=== PATIENT | male | born 1975 | race Caucasian/White ===

== ENCOUNTER → 2019-07-17 | Outpatient (CLI) | payer SELFPAY | PROVIDERS: Family Provider Family Medicine; PCP Family Medicine; Visit Provider Family Medicine | DX: N45.1 Epididymitis (principal) | CPT/HCPCS: 76870 ==

== ENCOUNTER → 2019-08-02 07:49 | Outpatient (BNVA) | payer MEDICARE, MEDICAID, SELFPAY | PROVIDERS: Family Provider Family Medicine; PCP Family Medicine; Referring Provider Family Medicine; Visit Provider Urology | DX: N50.819 Testicular pain, unspecified (principal); N99.89 Other postprocedural complications and disorders of genitourinary system; N45.1 Epididymitis; R10.31 Right lower quadrant pain | CPT/HCPCS: 81001 ==

== ENCOUNTER → 2019-08-14 07:51 | Outpatient (BNVA) | payer MEDICARE, MEDICAID, SELFPAY | PROVIDERS: Family Provider Family Medicine; PCP Family Medicine; Visit Provider Urology | DX: R10.31 Right lower quadrant pain (principal) | CPT/HCPCS: 81001 ==

== ENCOUNTER → 2019-08-24 12:34 | Outpatient (BNVA) | payer MEDICARE, MEDICAID, SELFPAY | PROVIDERS: Family Provider Family Medicine; PCP Family Medicine; Visit Provider Psychiatry & Neurology Psychiatry | DX: F63.81 Intermittent explosive disorder (principal); F41.1 Generalized anxiety disorder; F12.20 Cannabis dependence, uncomplicated; F15.21 Other stimulant dependence, in remission; F17.210 Nicotine dependence, cigarettes, uncomplicated | CPT/HCPCS: 99213 ==

== ENCOUNTER 2020-01-18 12:35 | Outpatient (CLI) | payer MEDICARE, MEDICAID, SELFPAY ==
--- NOTE | 2020-01-18 12:37 | US_ITS ---
WS: [id number] SCROTAL ULTRASOUND EXAMINATION CLINICAL INFORMATION: EPIDIDYMITIS COMPARISON: July 17, 2019 FINDINGS: TESTES Bilateral hydroceles with skin thickening worse in the right. Right scrotal skin thickening measures 5.5 mm. Hydrocele with more debris on the right. No evidence of epididymitis or orchitis. Normal in size and echotexture, without focal lesion. Color Doppler: Normal color Doppler flow pattern. Right testes size: 4.2 cm x 3.6 cm x 2.3 cm. Left testes size: 4.0 cm x 2.7 cm x 2.9 cm. EPIDIDYMIDES Normal in size and echotexture, without focal lesion. Color Doppler: Normal color Doppler flow pattern. Right epididymis size: 0.6 cm Left epididymitis size: 0.7 cm HYDROCELE Small bilateral VARICOCELE Bilateral OTHER FINDINGS None. US/US scrotum [id number] IMPRESSION: 1. Small bilateral hydroceles and bilateral varicoceles. Right hydrocele is la rger with more debris compared to left. 2. No evidence of orchitis or epididymitis.
== END 2020-01-18 12:36 | disposition home or self-care (01) ==
LOC: RAD 12:35
PROVIDERS: PCP Registered Nurse; Visit Provider Registered Nurse
DX: N45.1 Epididymitis (principal); N43.3 Hydrocele, unspecified
CPT/HCPCS: 76870

== ENCOUNTER → 2020-03-11 13:54 | Outpatient (BNVA) | payer MEDICARE, MEDICAID, SELFPAY | PROVIDERS: PCP Registered Nurse; Referring Provider Registered Nurse; Visit Provider Podiatrist Foot & Ankle Surgery | DX: M79.671 Pain in right foot (principal) | CPT/HCPCS: 73630 ==

== ENCOUNTER 2020-04-05 08:57 | Outpatient (CLI) | payer MEDICARE, MEDICAID, SELFPAY ==
--- NOTE | 2020-04-05 09:06 | XR_ITS ---
WS: [id number] THORACIC SPINE TECHNIQUE: 3 views of the thoracic spine CLINICAL INFORMATION: dorsalgia,cervicalgia COMPARISON: None. FINDINGS: Mild thoracic curve. Vertebral body heights and disc space heights are well preserved. No acute thora cic spine findings. XR/XR thoracic spine 3V* [id number] IMPRESSION: Mild thoracic curve. No acute thoracic spine findings.
--- NOTE | 2020-04-05 09:06 | XR_ITS ---
WS: [id number] CERVICAL SPINE TECHNIQUE: 3 views of the cervical spine CLINICAL INFORMATION: Dorsalgia, Cervicalgia COMPARISON: None. FINDINGS: Straightening of the normal cervical lordosis. Normal C1-C2 articulation. Normal prevertebral soft ti ssues. Mild spondylitic changes. No acute fractures. XR/XR cervical spine 3V* [id number] IMPRESSION: Mild spondylitic changes. No acute fractures.
--- NOTE | 2020-04-05 09:06 | XR_ITS ---
WS: [id number] LUMBAR SPINE TECHNIQUE: 3 views of the lumbar spine CLINICAL INFORMATION: dorsalgia,cervicalgia COMPARISON: None. FINDINGS: Five atm-pmx-qfwexum lumbar vertebral bodies. Slight retrolisthesis L3 on L4. Mild disc space narrowi ng L4-L5 and L5-S1. Moderate facet arthropathy L4-L5 and L5-S1. No acute appearing compression fractu res. Mild spondylitic changes. XR/XR lumbar spine 2-3V* [id number] IMPRESSION: 1. No acute appearing compression fractures. 2. Slight retrolisthesis L3 on L4. 3. Disc space narrowing worse L4-L5 and L5-S1.
== END 2020-04-05 08:58 | disposition home or self-care (01) ==
LOC: RADWPI 09:00
PROVIDERS: Family Provider Nurse Practitioner Family; PCP Nurse Practitioner Family; Visit Provider Nurse Practitioner Family
DX: M54.2 Cervicalgia; M54.5 Low back pain; M54.6 Pain in thoracic spine
CPT/HCPCS: 72040; 72072; 72100

== ENCOUNTER 2020-11-25 13:09 | Emergency (ER) | payer MEDICARE, MEDICAID, SELFPAY ==
[2020-11-25 13:37] VITALS: BP 118/81; PULSE 73; RESP 16; TEMP 36.6; O2SAT 97; BMI 23.7
--- NOTE | 2020-11-25 13:41 | XRR_ITS ---
PROCEDURE INFORMATION: Exam: XR Cervical Spine Exam date and time: 11/25/2020 1:58 PM Age: 45 years old Clinical indication: Neck pain TECHNIQUE: Imaging protocol: XR of the cervical spine. Views: 2 or 3 views. COMPARISON: CR XR cervical spine 3V* [id number] 04/05/2020 9:16 AM FINDINGS: Bones/joints: Normal. No acute fracture. There is reversal of cervical lordosis consistent with muscle spasm. Soft tissues: Unremarkable. XR/XR cervical spine 3V* [id number] IMPRESSION: 1. No acute cervical spine bony abnormality. 2. Reversal of cervical lordosis consistent with muscle spasm. 3. Otherwise negative examination
--- NOTE | 2020-11-25 15:32 | W.ED.NECK ---
HPI - Neck Pain/Injury General: Chief Complaint: Neck Pain/Injury Stated Complaint: Neck Pain/Trouble Sleeping Time Seen by Provider: 11/25/20 15:32 History of Present Illness: HPI Narrative: Patient comes in today with complaints of neck pain and difficulty turning neck to the right. Patient denies any injury or fall. Patient had a previous episode similar to this about 6 months ago. Patient reports trying [id number] medications with minimal to no relief. Patient does have a history of spinal surgery of the lumbar or a previous herniated disc. Patient is alert and oriented. Patient appears well. Patient appears in mild to moderate pain. MD complaint: neck pain Place: home Radiation: right lateral Severity: moderate Quality: sharp Duration: intermittent Relieving factors: none Exacerbating factors: movement of neck Associated symptoms: Reports no associated symptoms Treatments prior to arrival: acetaminophen, ibuprofen and heat therapy Review of Systems General: Reports: 10 or more systems reviewed and unremarkable except in HPI and below Musc: Reports: neck pain PFSH ED PFSH: Medical History Epididymitis, right H/O corrected cleft lip and palate History of cardiomyopathy History of renal calculi Right groin pain Smoker Family History Mother , at age 52 renal failure Chronic kidney disease (CKD) Social History Smoking and tobacco status: current every day smoker cigarettes Packs smoked per day: 0.5 Years cigarettes smoked: 27 Quit status (tobacco): has tried quititng Number of times tried to quit tobacco: 8 Second hand smoke exposure: Yes Smoking risk assessment/counseling performed?: Yes Tobacco counseling given: counseling >3 minutes Alcohol intake: never Adopted: No Caregiver/support person: No Lives independently: No Household members: spouse Marital status: Current occupational status: disabled Physical Exam Const: COMMON NORMALS: no acute distress and patient oriented x3 GENERAL APPEARANCE: cooperative HENMT: COMMON NORMALS: normocephalic and Normal external nose present HEAD & SCALP: normal to inspection and normocephalic NOSE: Normal external nose present MOUTH: Normal oral and palatal mucosa present Eye: GENERAL EYE: appearance normal, both eyes and all related structures Neck/C-Spine: OTHER: Tenderness is noted to the right trapezius, no central vertebral tenderness is noted on palpation, right paraspinous muscles are tight and with spasm. Chest: COMMONS NORMALS: normal inspection of the chest Resp: COMMON NORMALS: normal respiratory effort EFFORT & INSPECTION: Yes able to speak in complete sentences Cardio: COMMON NORMALS: regular rate and regular rhythm RATE: regular rate RHYTHM: regular rhythm GI: COMMON NORMALS: non-tender Back/Pelvis: COMMON NORMALS: thoracic and lumbar spine normal to inspection Extremity: COMMON NORMALS: normal to inspection Neuro: COMMON NORMALS: patient oriented x3 and moves all extremities Psych: COMMON NORMALS: mental status grossly normal and cooperative Skin: COMMON NORMALS: no rashes or lesions noted GENERAL SKIN EXAM: no rashes or lesions noted Course Vital Signs: Vital signs: Vital Signs Temperature 97.9 F 11/25/20 13:37 Pulse Rate 73 11/25/20 13:37 Respiratory Rate 16 11/25/20 13:37 Blood Pressure 118/81 11/25/20 13:37 Pulse Oximetry 97 11/25/20 13:37 MDM - Neck Pain/Injury MDM Narrative: Medical decision making narrative: Patient comes in today with complaints of neck discomfort for 1 month. Patient reports minimal to no relief of pain with rtpq-ztr-[id number] remedies. Patient has had previous episode of neck pain. On exam patient has some muscle tightness and tenderness to the right paraspinous muscles of the cervical spine. No midline tenderness was noted on palpation. Normal sensation is noted distally in bilateral extremities with normal strength. Differential diagnosis includes but not limited to intervertebral disc disease, facet arthropathy, muscle strain. Recommended treatment at this time for a muscle strain/spasm with range of motion exercises and medication for pain and muscle relaxation. Patient reported understanding agreed to plan. Also recommended case management for referral of patient to spinal orthopedist for further evaluation and treatment as needed. Patient reported understanding. Discharge Plan Discharge Patient Disposition: Home Clinical Impression: Strain of neck muscle Qualifiers: Encounter type: initial encounter Qualified Code(s): S16.1XXA - Strain of muscle, fascia and tendon at neck level, initial encounter Condition: Stable Prescriptions: New diclofenac potassium 50 mg tablet 50 mg PO Q8H PRN (Reason: pain) Qty: 14 RF: 0 cyclobenzaprine 10 mg tablet 10 mg PO BID PRN (Reason: muscle spasm) Qty: 10 RF: 0 No Action buspirone 5 mg tablet 5 mg PO TID Qty: 90 RF: 1 sumatriptan succinate 50 mg tablet See Rx Instructions PO .COMPLEX PRNRF: 0 triazolam 0.25 mg tablet 0.25 mg PO ONCE Qty: 1 RF: 0 Discharge Orders: Discharge ED (Routine); Ordered 11/25/20 Ordered By: Kristofer Gonsales Referrals: Antonieta Poole FNP [Primary Care Provider] - Discharge Diet: Usual diet Discharge Activity: Increase activity as tolerated Patient Instructions: Cervical Spine Strain (ED), Opioid Safety Activity Restrictions/Additional Instructions: Use medication as directed. Drink plenty of water with medication. Follow-up with primary care for further instruction. Follow-up with orthopedist for further evaluation and treatment. Return to the ER for new concerns. Coding Level of Care Code ED [employer]
[2020-11-25 15:48] VITALS: BP 122/74; PULSE 72; RESP 18; O2SAT 98
--- NOTE | 2020-11-26 09:00 | DCPLANNER ---
business area manager had message to schedule a follow up appointment for patient with ortho. business area manager called the ortho clinic, spoke with Sasha, gave clinic patients information. business area manager was told that patients information would be printed and reviewed. Clinic will call patient with appointment information.
--- NOTE | 2020-11-27 14:32 | DCPLANNER ---
Patient has a follow up appointment scheduled for Thursday, December 03, 2020 at 2:[address] Garnett at [facility]. Clinic will call patient with appointment information.
--- NOTE | 2021-01-02 15:26 | DCPLANNER ---
Patient had a follow up appointment scheduled for 12.03.20 with ortho - patient did attend appointment.
== END 2020-11-25 15:49 | disposition home or self-care (01) ==
PROVIDERS: Emergency Provider Nurse Practitioner Family; PCP Nurse Practitioner Family
DX: S16.1XXA Strain of muscle, fascia and tendon at neck level, initial encounter (principal); F17.210 Nicotine dependence, cigarettes, uncomplicated; X58.XXXA Exposure to other specified factors, initial encounter
CPT/HCPCS: 72040; 99282

== ENCOUNTER → 2020-12-03 15:04 | Outpatient (BNVA) | payer MEDICARE, MEDICAID, SELFPAY | PROVIDERS: PCP Nurse Practitioner Family; Referring Provider Nurse Practitioner Family; Visit Provider Orthopaedic Surgery | DX: M47.892 Other spondylosis, cervical region (principal); M54.2 Cervicalgia | CPT/HCPCS: 72050 ==

== ENCOUNTER 2020-12-10 13:07 | Outpatient (CLI) | payer MEDICARE, MEDICAID, SELFPAY ==
--- NOTE | 2020-12-10 13:00 | MR_ITS ---
WS: [id number] MRI CERVICAL SPINE NONCONTRAST HISTORY: M54.2 - Cervicalgia COMPARISON: None available. Technique: Multiplanar, multisequence noncontrast imaging of the cervical spine. Straightening of the normal cervical lordosis with slight reversal centered at C5. Significant motion artifact on several of the sequences. Signal within the cervical cord is normal. Visualized posterior fossa is unremarkable. Craniocervical junction, C1 and C2 relationship, odontoid process and soft tissues are normal. C2-C3: Normal. C3-C4: Mild disc bulging with a central disc protrusion. No significant stenosis C4-C5: Mild annular disc bulging with small foraminal osteophytes. Small disc osteophyte LEFT paracen tral with near cord contact. No significant stenosis. C5-C6: Diffuse osteophytic ridging with a moderate size central disc protrusion contacting the ventra l thecal sac with mild displacement. Mild central stenosis without significant foraminal stenosis. C6-C7: Mild annular disc bulge. Small disc osteophyte complex in the proximal LEFT foramen causing po sterior displacement of the exiting nerve roots. No significant stenosis. C7-T1: Normal. Paraspinal soft tissue are normal. MR/MR cervical spin wo con* [id number] IMPRESSION: 1. Straightening of the normal cervical lordosis. 2. Disc osteophyte contacting the ventral cervical cord at C5-6 with posterior displacement and mild stenosis. 3. Disc osteophyte complex LEFT paracentral at C4-5 without significant stenos is. 4. Disc osteophyte contact in the LEFT foramen at C6-7 causing posterior displ acement of the nerve roots. Displacement but no significant stenosis.
== END 2020-12-10 13:08 | disposition home or self-care (01) ==
LOC: RADSHAW 13:13
PROVIDERS: PCP Nurse Practitioner Family; Visit Provider Orthopaedic Surgery
DX: M54.2 Cervicalgia (principal); M25.78 Osteophyte, vertebrae; M48.02 Spinal stenosis, cervical region
CPT/HCPCS: 72141

== ENCOUNTER 2020-12-19 15:29 | Outpatient (RCR) | payer MEDICARE, MEDICAID, SELFPAY | END 2021-01-15 23:59 | disposition home or self-care (01) | LOC: SPT 15:29 | PROVIDERS: PCP Nurse Practitioner Family; Referring Provider Orthopaedic Surgery; Visit Provider Orthopaedic Surgery | DX: M48.02 Spinal stenosis, cervical region (principal) | CPT/HCPCS: 97110; 97161; G0283 ==

== ENCOUNTER → 2021-11-11 12:19 | Outpatient (BNVA) | payer MEDICARE, MEDICAID, SELFPAY | PROVIDERS: PCP Family Medicine; Visit Provider Orthopaedic Surgery | DX: M47.22 Other spondylosis with radiculopathy, cervical region (principal); Z46.89 Encounter for fitting and adjustment of other specified devices; M54.2 Cervicalgia | CPT/HCPCS: 72050; 97760; 99213; 99214; L0174 ==

== ENCOUNTER 2021-11-11 15:19 | Outpatient (CLI) | payer MEDICARE, MEDICAID, SELFPAY | END 2021-11-11 15:20 | disposition home or self-care (01) | LOC: SPT 15:20 | PROVIDERS: PCP Family Medicine; Visit Provider Orthopaedic Surgery | DX: Z46.89 Encounter for fitting and adjustment of other specified devices (principal); M54.2 Cervicalgia | CPT/HCPCS: 97760; L0174 ==

== ENCOUNTER 2022-09-22 14:40 | Outpatient (CLI) | payer MEDICARE, MEDICAID, SELFPAY ==
--- NOTE | 2022-09-22 15:14 | CT_ITS ---
WS: [id number] CT ABDOMEN AND PELVIS NONCONTRAST HISTORY: CALCULUS OF KIDNEY, DYSURIA TECHNIQUE: Imaging performed through the abdomen and pelvis. Coronal and sagittal reformats are submi tted. All CT scans at [facility] use at least one of these dose optimization techniques: auto mated exposure control; mA and/or kV adjustment per patient size (includes targeted exams where dose is matched to clinical indication); or iterative reconstruction. DLP: 486.71 mGy.cm COMPARISON: 06/29/2019 Lower thorax: Breathing motion artifact at the lung bases. No mass. Liver: Normal size liver. No mass or bile duct dilatation. Gallbladder: Normal gallbladder. Pancreas: Normal size and attenuation. Normal pancreatic duct. No pancreatitis or mass. Spleen: Normal. Adrenal glands: Normal. No mass. Right kidney: Normal size kidney with no mass or hydronephrosis. Left kidney: Normal size kidney with no mass or hydronephrosis. Aorta: Normal abdominal aorta, no aneurysm or atherosclerosis. No free fluid, intraperitoneal air or significant lymphadenopathy. GI tract: Normally distended stomach. No small bowel obstruction. No evidence for acute appendicitis. Developing appendicolith in the central appendix. No obstruction. Abdominal wall: Negative. No hernia. Pelvis: Normal. Osseous structures: Cystic and sclerotic lesion in the proximal RIGHT femur, just inferior to the les ser trochanter is benign and stable since at least 2013. CT/CT kidney stone [id number] IMPRESSION: 1. No acute abdominal or pelvic abnormalities are identified. No renal obstruc tion or calcification. 2. No evidence for appendicitis. 3. No ascites or adenopathy.
== END 2022-09-22 14:41 | disposition home or self-care (01) ==
PROVIDERS: PCP Family Medicine; Visit Provider Family Medicine
DX: N20.0 Calculus of kidney (principal); R30.0 Dysuria
CPT/HCPCS: 74176

== ENCOUNTER → 2022-10-14 14:46 | Outpatient (BNVA) | payer OTHER, SELFPAY | PROVIDERS: PCP Family Medicine; Visit Provider Nurse Practitioner Psychiatric/Mental Health | DX: Z03.89 Encounter for observation for other suspected diseases and conditions ruled out (principal) | CPT/HCPCS: 80053; 80306; 85025 ==

== ENCOUNTER 2022-11-04 13:23 | Outpatient (CLI) | payer OTHER, MEDICAID, SELFPAY ==
--- NOTE | 2022-11-04 13:51 | US_ITS ---
WS: [id number] TESTICULAR ULTRASOUND HISTORY: RLQ PAIN/DYSURIA/EPIDIDYMITIS COMPARISON: 01/18/2020 TECHNIQUE: Real-time and color Doppler imaging or utilized to perform a testicular ultrasound. Right testicle: 5.4 cm x 3.0 cm x 2.1 cm. RIGHT testicle is normal size. There is increased vascularity throughout the testicle. No mass. Normal appearance of the epididymis. No increased vascularity. No significant hydrocele. Mild increased vascularity along the inguinal canal and spermatic cord. Right epididymis: Normal epididymis with no increased vascularity. Left testicle: 4.3 cm x 3.0 cm x 1.9 cm. Normal size and echogenicity. No mass or torsion. Normal color Doppler is present throughout. Systolic and diastolic velocities are both present. Small simple hydrocele. Left epididymis: Distended LEFT epididymis. No increased vascularity. US/US scrotum [id number] IMPRESSION: 1. There is no testicular mass or torsion at this time. 2. Mild hyperemia within the RIGHT testicle which is asymmetric to the LEFT an d new since 01/18/2020. There is also some mild thickening with increased vascula rity in the spermatic cord. These findings can be seen with intermittent torsio n, especially with the hyperemia in the spermatic cord. At this time there is n o torsion. If pain progresses or does not resolve patient should be reevaluated and followed very closely. 3. Negative LEFT testicle.
== END 2022-11-04 13:24 | disposition home or self-care (01) ==
LOC: RAD 13:32
PROVIDERS: PCP Family Medicine; Visit Provider Family Medicine
DX: R10.31 Right lower quadrant pain (principal); R30.0 Dysuria; N45.1 Epididymitis
CPT/HCPCS: 76870

== ENCOUNTER 2022-12-21 07:28 | Outpatient (CLI) | payer MEDICARE, MEDICAID, SELFPAY ==
--- NOTE | 2022-12-21 07:41 | CT_ITS ---
WS: [id number] CT ABDOMEN AND PELVIS NONCONTRAST HISTORY: RLQ ABDOMINAL PAIN/R TESTICULAR PAIN/HX OF NEPHROLITHIASIS TECHNIQUE: Imaging performed through the abdomen and pelvis. Coronal and sagittal reformats are submi tted. All CT scans at [facility] use at least one of these dose optimization techniques: auto mated exposure control; mA and/or kV adjustment per patient size (includes targeted exams where dose is matched to clinical indication); or iterative reconstruction. DLP: 338.02 mGy.cm COMPARISON: 09/22/2022 Lower thorax: Significant breathing motion artifact at the lung bases. 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 Similar to the prior study. No h iatal hernia. Liver: Normal size liver. No mass or bile duct dilatation. Gallbladder: Mildly contracted. Otherwise negative. Pancreas: Normal size and attenuation. Normal pancreatic duct. No pancreatitis or mass. Spleen: Normal. Adrenal glands: Normal. No mass. Right kidney: Normal size kidney with no mass or hydronephrosis. There is minimal increased density b eginning within the calyces. Left kidney: Normal size kidney with no mass or hydronephrosis. There is minimal increased density be ginning within the calyces. Aorta: Normal abdominal aorta, no aneurysm or atherosclerosis. No free fluid, intraperitoneal air or significant lymphadenopathy. GI tract: Normal noncontrast imaging of the stomach, small bowel and colon. No obstruction or wall th ickening. Normal appendix. Abdominal wall: Negative. No hernia. Pelvis: Normal. No free fluid or adenopathy. Bilateral contracted. Osseous structures: Again noted is is the mixed lytic and sclerotic lesion in the proximal RIGHT femu r stable since 2013. CT/CT kidney stone [id number] IMPRESSION: 1. Normal appendix. 2. No renal obstruction or stone. 3. There is very minimal increased density within the calyces of each kidney w hich can be seen with medullary sponge kidney. There is no renal obstruction. 4. No GI tract obstruction.
== END 2022-12-21 07:29 | disposition home or self-care (01) ==
LOC: RAD 07:34
PROVIDERS: PCP Family Medicine; Visit Provider Urology
DX: R10.31 Right lower quadrant pain (principal); N50.811 Right testicular pain; Z87.442 Personal history of urinary calculi
CPT/HCPCS: 74176

== ENCOUNTER → 2023-01-28 08:26 | Outpatient (BNVA) | payer MEDICARE, MEDICAID, SELFPAY | PROVIDERS: PCP Family Medicine; Visit Provider Podiatrist Foot & Ankle Surgery | DX: L60.3 Nail dystrophy (principal) | CPT/HCPCS: 99213 ==

== ENCOUNTER 2023-07-14 09:52 | Outpatient (CLI) | payer MEDICARE, MEDICAID, SELFPAY ==
--- NOTE | 2023-07-14 09:56 | XRR_ITS ---
PROCEDURE INFORMATION: Exam: XR Left Shoulder Exam date and time: 07/14/2023 9:59 AM Age: 48 years old Clinical indication: Pain; Shoulder; Left; Additional info: Left shoulder pain.No history of trauma or recent surgery is provided. TECHNIQUE: Imaging protocol: Radiologic exam of the left shoulder. 3image(s) are provided. Views: 2 or more views. COMPARISON: CR XR cervical spine 4-5V [id number] 11/11/2021 12:52 PM. No previous shoulder radiograph is currently available. Chest radiograph report of 2018. FINDINGS: Bones/joints: Osseous alignment is maintained.No interval displaced fracture or dislocation is appreciated. Glenohumeral alignment appears maintained. There is some mild degenerative spurring of the glenohumeral junction inferiorly. There is some mild chronic appearing degenerative changes of the superolateral aspect of the humeral head. There is some mild degeneration of the acromioclavicular junction with some slight subacromial narrowing. Medial clavicular alignment appears maintained. Lungs: No lobar consolidation is appreciated. Pleural space: No pneumothorax is appreciated. Soft tissues: No radiopaque foreign body or subcutaneous emphysema is appreciated. Other findings: No other significant interval changes are appreciated. XR/XR shoulder LT min 2V* [id number] IMPRESSION: There are mild chronic appearing degenerative changes of the shoulder demonstrated with maintained alignment.No interval fracture or dislocation is appreciated.
== END 2023-07-14 09:53 | disposition home or self-care (01) ==
LOC: RAD 09:53
PROVIDERS: PCP Family Medicine; Visit Provider Family Medicine
DX: M19.012 Primary osteoarthritis, left shoulder (principal)
CPT/HCPCS: 73030

== ENCOUNTER 2023-08-26 15:30 | Outpatient (CLI) | payer MEDICARE, MEDICAID, SELFPAY ==
--- NOTE | 2023-08-26 15:48 | MR_ITS ---
WS: [id number] MRI LEFT SHOULDER HISTORY: LEFT SHOULDER PAIN COMPARISON: Radiograph 07/14/2023 TECHNIQUE: Multiplanar sequences of the shoulder joint are submitted. Minimal AC joint arthritis. Mild downsloping of the acromion with very minimal subacromial impingemen t. No subacromial or subdeltoid fluid. No os acromion. Biceps tendon in normal position. No biceps te ndon tear. Rotator cuff muscles are normal size. No edema or atrophy. Focal tendinopathy involving the distal shah praspinatus tendon. This does not appear to be a tear. There is no increased T2 signal. There is mild increase signal in the proton density sequence along the articular surface. No joint effusion. There is mild intrasubstance degeneration in the anterior labrum. There is a small amount of fluid adjacen t to the anterior labrum but no definite tear. IMPRESSION: 1. No rotator cuff tear. 2. There is a very small amount of fraying and tendinopathy involving the distal articular surface o f the supraspinatus tendon. 3. Mild AC joint arthritis. 4. Mild downsloping of the acromion. 5. There is a small amount of fluid adjacent to the anterior labrum but the fluid appears external t o the labrum.
== END 2023-08-26 15:31 | disposition home or self-care (01) ==
LOC: RAD 15:30
PROVIDERS: PCP Family Medicine; Visit Provider Family Medicine
DX: M25.512 Pain in left shoulder (principal)
CPT/HCPCS: 73221

== ENCOUNTER 2024-02-27 14:39 | Emergency (ER) | payer MEDICARE, MEDICAID, SELFPAY ==
--- NOTE | 2024-02-27 14:41 | XRR_ITS ---
PROCEDURE INFORMATION: Exam: XR Right Foot Exam date and time: 02/27/2024 3:53 PM Age: 49 years old Clinical indication: Pain; Foot; Right; Additional info: Injury TECHNIQUE: Imaging protocol: Radiologic exam of the right foot. Views: 3 or more views. COMPARISON: CR XR foot RT min 3V* [id number] 03/11/2020 1:59 PM FINDINGS: Bones/joints: Normal. Soft tissues: Normal. XR/XR foot RT min 3V* [id number] IMPRESSION: No acute findings.
--- NOTE | 2024-02-27 14:41 | XRR_ITS ---
PROCEDURE INFORMATION: Exam: XR Right Ankle Exam date and time: 02/27/2024 3:52 PM Age: 49 years old Clinical indication: Pain; Ankle; Right TECHNIQUE: Imaging protocol: Radiologic exam of the right ankle. Views: 3 or more views. COMPARISON: CR XR foot RT min 3V* [id number] 03/11/2020 1:59 PM FINDINGS: Bones/joints: Normal. Soft tissues: Normal. XR/XR ankle RT min 3V* [id number] IMPRESSION: No acute findings.
[2024-02-27 14:43] VITALS: BP 151/83; PULSE 59; RESP 16; TEMP 36.7; O2SAT 98
--- NOTE | 2024-02-27 15:44 | W.ED.EXTPRO ---
HPI - Extremity Problem General: Chief complaint: Extremity Injury, Lower Stated complaint: right foot pain Time Seen by Provider: 02/27/24 14:57 History of Present Illness: 49-year-old male patient comes in today with right heel pain. Patient states that he had stomped on the floor of his apartment today when his down store neighbors were making too much noise. Since then patient has had increased pain and discomfort to the heel of his right foot. Patient appears nontoxic. Patient appears mild pain at rest. Related Data Previous Rx's Medication Instructions Recorded diclofenac potassium 50 mg tablet 50 mg PO Q8H PRN pain #10 tabs 02/27/24 Allergies Allergy/AdvReac Type Severity Reaction Status Date / Time codeine Allergy NAUSEA,HEAD Verified 02/27/24 14:46 ACHE Review of Systems General: Reports: 10 or more systems reviewed and unremarkable except in HPI and below PFSH ED PFSH: Medical History Cannabis dependence Epididymitis, right H/O corrected cleft lip and palate History of cardiomyopathy History of renal calculi Psychiatric care Psychiatric care Right groin pain Smoker Family History Mother , at age 52 renal failure Chronic kidney disease (CKD) Social History Smoking and tobacco/nicotine status: current every day tobacco/nicotine user cigarettes Packs smoked per day: 0.5 Years cigarettes smoked: 27 Quit status (tobacco/nicotine): has tried quititng Number of times tried to quit tobacco: 8 Second hand smoke exposure: Yes Alcohol intake: never Substance/Drug Use: unknown Adopted: No Caregiver/support person: No Lives independently: No Household members: spouse Marital status: Current occupational status: disabled Physical Exam Const: COMMON NORMALS: alert HENMT: COMMON NORMALS: normocephalic HEAD & SCALP: normocephalic Neck/C-Spine: COMMON NORMALS: full ROM Chest: COMMONS NORMALS: normal inspection of the chest Resp: COMMON NORMALS: normal respiratory effort Cardio: COMMON NORMALS: regular rate RATE: regular rate Back/Pelvis: COMMON NORMALS: thoracic and lumbar spine normal to inspection Extremity: RIGHT LOWER EXTREMITY: Yes foot & digits (Tenderness to the heel.) Neuro: SENSORIUM/ORIENTATION: Yes alert Skin: COMMON NORMALS: no rashes or lesions noted GENERAL SKIN EXAM: no rashes or lesions noted Course Vital Signs: Vital signs: Vital Signs Temperature 98.1 F 02/27/24 14:43 Pulse Rate 59 L 02/27/24 14:43 Respiratory Rate 16 02/27/24 14:43 Blood Pressure 151/83 02/27/24 14:43 Pulse Oximetry 98 02/27/24 14:43 Oxygen Delivery Me thod Room Air 02/27/24 14:43 MDM - Extremity (Nontraumatic) Medical Decision Making 49-year-old male patient comes in today for complaints of injury to the right heel. On exam patient has tenderness to the sole of right heel. No bruising minimal to no swelling. Differential diagnosis fracture, contusion, dislocation. X-ray notes no fracture or dislocation. Reviewed exam with patient with recommendation for treatment and follow-up. Patient reports understanding. All radiology interpretation(s) finalized by discharge Discharge Plan Discharge Patient Disposition: Home Clinical Impression: Contusion of right foot Qualifiers: Encounter type: initial encounter Qualified Code(s): S90.31XA - Contusion of right foot, initial encounter Condition: Stable Prescriptions: New diclofenac potassium 50 mg tablet 50 mg PO Q8H PRN (Reason: pain) Qty: 10 0RF Discharge Orders: Discharge ED (Routine); Ordered 02/27/24 Ordered By: Kristofer Gonsales Referrals: Shyanne Taylor MD [Primary Care Provider] - Discharge Diet: Usual diet Discharge Activity: Increase activity as tolerated Patient Instructions: Contusion in Adults (ED) Activity Restrictions/Additional Instructions: Ice packs to the heel. Elevate foot. Pain will persist for 2 to 3 days may even seem worse at times. After that you should see steady improvement. Use crutches to help with ambulation until you can comfortably walk on the extremity. Follow-up with primary care in 1 week for recheck. Return to ED for new concerns. Coding Level of Care Code ED [facility] [employer] [facility]
== END 2024-02-27 16:47 | disposition home or self-care (01) ==
PROVIDERS: Emergency Provider Nurse Practitioner Family; PCP Family Medicine
DX: S90.31XA Contusion of right foot, initial encounter (principal); F17.210 Nicotine dependence, cigarettes, uncomplicated; W22.09XA Striking against other stationary object, initial encounter
CPT/HCPCS: 73610; 73630; 99283; E0114

== ENCOUNTER 2024-03-08 09:34 | Outpatient (CLI) | payer MEDICARE, MEDICAID, SELFPAY | END 2024-03-08 09:35 | disposition home or self-care (01) | LOC: SPT 09:35 | PROVIDERS: PCP Family Medicine; Visit Provider Podiatrist Foot & Ankle Surgery | DX: Z46.89 Encounter for fitting and adjustment of other specified devices (principal); S99.921D Unspecified injury of right foot, subsequent encounter; X58.XXXD Exposure to other specified factors, subsequent encounter | CPT/HCPCS: 99213; L4361 ==

== ENCOUNTER 2024-03-29 12:20 | Outpatient (CLI) | payer MEDICARE, MEDICAID, SELFPAY | END 2024-03-29 12:21 | disposition home or self-care (01) | LOC: SPT 12:21 | PROVIDERS: PCP Family Medicine; Visit Provider Podiatrist Foot & Ankle Surgery | DX: S90.31XA Contusion of right foot, initial encounter (principal); X58.XXXA Exposure to other specified factors, initial encounter | CPT/HCPCS: 97760; 99213; L1902 ==

== ENCOUNTER 2024-08-02 20:44 | Emergency (ER) | payer MEDICARE, MEDICAID, SELFPAY ==
[2024-08-02 20:53] VITALS: BP 159/91; PULSE 45; RESP 16; TEMP 36.3; O2SAT 98; BMI 23.7
[2024-08-02 22:43] LABS: Alanine Aminotransferase 16 U/L (0-41); Albumin Level 4.6 g/dL (3.5-5.2); Alkaline Phosphatase 96 U/L (40-130); Aspartate Amino Transferase 22 U/L (0-40); Blood Urea Nitrogen 17 mg/dL (6-20); Calcium 9.7 mg/dL (8.5-10.5); Carbon Dioxide 27 mmol/L (22-29); Chloride 103 mmol/L (98-107); Creatinine Clr Calc Pharmacy 80.0821; Glomerular Filtration Rate 59.2 mL/min (90-130); Glucose 112 mg/dL (65-115); Lipase 98 U/L (13-60); Osmolality Calculated 294 mOsm/kg (285-295); Sodium 141 mmol/L (136-145); Total Bilirubin 0.3 mg/dL (0.15-1.2); Total Protein 7.6 g/dL (6.6-8.7)
[2024-08-02 22:45] LABS: Basophils # 0.1 10^3/uL (0.0-0.1); Basophils % 0.4 %; Eosinophils # 0.2 10^3/uL (0.0-0.8); Eosinophils % 1.5 %; Hematocrit 45.4 % (37-53); Lymphocytes # 1.3 10^3/uL (0.8-4.8); Lymphocytes % 10.9 %; Mean Corpuscular HGB Conc 34.1 g/dL (30-55); Mean Corpuscular Hemoglobin 30.5 pg (27-33); Mean Corpuscular Volume 89.2 fl (82-101); Mean Platelet Volume 10.3 fL (7.4-10.4); Monocytes # 0.5 10^3/uL (0.2-0.9); Monocytes % 4.3 %; Neutrophils # 9.89 10^3/uL (1.8-7.7); Neutrophils % 82.6 %; Nucleated Red Blood Cells % 0 %; Platelet Count 226 10^3/cmm (157-399); Red Blood Count 5.09 10^6/uL (3.85-5.65); Red Cell Distribution Width 11.5 % (12.1-15.1); White Blood Count 11.98 10^3/uL (3.29-11.43)
--- NOTE | 2024-08-02 22:45 | ED_ITS ---
HPI - Headache 2 General: Chief Complaint: Nausea/Vomiting/Diarrhea Stated Complaint: n/v headache Time Seen by Provider: 08/02/24 22:35 History of Present Illness: Patient presents to the ER with complaints of a headache with nausea vomiting light sensitivity and sound sensitivity. Patient says these probably migraine. Patient does not like shots. This been going on for about 8 hours. Patient says vomited about 5 times. Patient has had this in the past and Imitrex worked good. Related Data Home Medications Medication Instructions Recorded Confirmed cyclobenzaprine 10 mg tablet 10 mg PO TID 03/08/24 03/29/24 duloxetine 60 mg capsule,delayed 60 mg PO DAILY 03/08/24 03/29/24 release gabapentin 300 mg capsule 300 mg PO TID 03/08/24 03/29/24 hydroxyzine HCl 10 mg tablet 10 mg PO BID 03/08/24 03/29/24 lamotrigine 100 mg tablet 100 mg PO DAILY 03/08/24 03/29/24 olanzapine 2.5 mg tablet 2.5 mg PO DAILY 03/08/24 03/29/24 Previous Rx's Medication Instructions Recorded Cam boot to right #1 ea 03/08/24 ASO #1 ea 03/29/24 diclofenac sodium 75 mg 75 mg PO BID 2 weeks #28 tabs 03/29/24 tablet,delayed release Allergies Allergy/AdvReac Type Severity Reaction Status Date / Time codeine Allergy NAUSEA,HEAD Verified 03/29/24 11:15 ACHE Review of Systems 2 General: Reports: 10 or more systems reviewed and unremarkable except in HPI and below PFSH ED 2 PFSH: Medical History Cannabis dependence Smoker History of cardiomyopathy H/O corrected cleft lip and palate History of renal calculi Right groin pain Epididymitis, right Family History Mother , at age 52 renal failure Chronic kidney disease (CKD) Social History Smoking and tobacco/nicotine status: current every day tobacco/nicotine user cigarettes Packs smoked per day: 0.5 Years cigarettes smoked: 27 Quit status (tobacco/nicotine): has tried quititng Number of times tried to quit tobacco: 8 Second hand smoke exposure: Yes Alcohol intake: never Substance/Drug Use: unknown Adopted: No Caregiver/support person: No Lives independently: No Household members: spouse Marital status: Current occupational status: disabled Physical Exam 2 Const: COMMON NORMALS: no acute distress, average body habitus, patient oriented x3, no limitations, healthy appearing, alert and well nourished HENMT: COMMON NORMALS: normocephalic, atraumatic, hearing grossly normal bilaterally, external ears normal, Normal external nose present and moist oral mucous membranes HEAD & SCALP: normocephalic and atraumatic NOSE: Normal external nose present EXTERNAL EAR: Yes external ears normal Eye: COMMON NORMALS: Equal, round and reactive pupils present, EOMs intact bilaterally, conjunctivae normal and no scleral icterus CONJUNCTIVA: Yes conjunctivae normal PUPIL: Yes Equal, round and reactive pupils present Neck/C-Spine: COMMON NORMALS: full ROM, no lymphadenopathy, supple, no meningeal signs, no JVD and Thyroid normal THYROID: Thyroid normal Chest: COMMONS NORMALS: normal inspection of the chest and normal palpation of entire chest wall Resp: COMMON NORMALS: normal respiratory effort, No retractions, No use of accessory muscles and clear to auscultation bilaterally AUSCULTATION: clear to auscultation bilaterally Cardio: COMMON NORMALS: no JVD, regular rate, regular rhythm, S1 normal heart sound present, S2 normal heart sound present, No gallops present (Cardio), No clicks present (Cardio), No murmurs present (Cardio) and No rub (Cardio) R ATE: regular rate RHYTHM: regular rhythm HEART SOUNDS: S1 normal heart sound present and S2 normal heart sound present GI: COMMON NORMALS: Normal to inspection, nondistended, normoactive bowel sounds present, Soft to palpation, non-tender, No hepatosplenomegaly present and no masses PALPATION: Yes Soft to palpation and Yes No hepatosplenomegaly present Neuro: COMMON NORMALS: patient oriented x3 SENSORIUM/ORIENTATION: Yes alert MENINGEAL SIGNS: Yes no meningeal signs Course 2 Vital Signs: Vital signs: Vital Signs Temperature 97.4 F L 08/02/24 20:53 Pulse Rate 57 L 08/02/24 23:16 Respiratory Rate 16 08/02/24 20:53 Blood Pressure 135/75 08/02/24 23:16 Pulse Oximetry 95 08/02/24 23:16 Oxygen Delivery Me thod Room Air 08/02/24 20:53 MDM - Headache Medical Decision Making Patient received Zofran 8 mg, Phenergan 25 mg, Imitrex 100 mg, all of his help patient's pain and nausea. Patient be discharged home. Medical Records I reviewed the patient's medical records. Lab Data I reviewed the patient's lab results. 08/02/24 22:10 08/02/24 22:10 Laboratory Results WBC 11.98 10^3/uL (3.29-11.43) H 08/02/24 22:10 RBC 5.09 10^6/uL (3.85-5.65) 08/02/24 22:10 Hgb 15.50 g/dL (11.27-16.99) 08/02/24 22:10 Hct 45.4 % (37-53) 08/02/24 22:10 MCV 89.2 fl (82-101) 08/02/24 22:10 MCH 30.5 pg (27-33) 08/02/24 22:10 MCHC 34.1 g/dL (30-55) 08/02/24 22:10 RDW 11.5 % (12.1-15.1) L 08/02/24 22:10 Plt Count 226 10^3/cmm (157-399) 08/02/24 22:10 MPV 10.3 fL (7.4-10.4) 08/02/24 22:10 Neut % (Auto) 82.6 % 08/02/24 22:10 Lymph % (Auto) 10.9 % 08/02/24 22:10 Mayes % (Auto) 4.3 % 08/02/24 22:10 Eos % (Auto) 1.5 % 08/02/24 22:10 Baso % (Auto) 0.4 % 08/02/24 22:10 Neut # (Auto) 9.89 10^3/uL (1.8-7.7) H 08/02/24 22:10 Lymph # (Auto) 1.3 10^3/uL (0.8-4.8) 08/02/24 22:10 Mayes # (Auto) 0.5 10^3/uL (0.2-0.9) 08/02/24 22:10 Eos # (Auto) 0.2 10^3/uL (0.0-0.8) 08/02/24 22:10 Baso # (Auto) 0.1 10^3/uL (0.0-0.1) 08/02/24 22:10 Nucleated RBC % (auto) 0 % 08/02/24 22:10 Nucleated RBCs # 0.0 /100WBC 08/02/24 22:10 Sodium 141 mmol/L (136-145) 08/02/24 22:10 Potassium 4.0 mmol/L (3.5-5.1) 08/02/24 22:10 Chloride 103 mmol/L (98-107) 08/02/24 22:10 Carbon Dioxide 27 mmol/L (22-29) 08/02/24 22:10 Anion Gap 15.0 (5-19) 08/02/24 22:10 BUN 17 mg/dL (6-20) 08/02/24 22:10 Creatinine 1.3 mg/dL (0.7-1.2) H 08/02/24 22:10 GFR Calculation 59.2 mL/min (90-130) L 08/02/24 22:10 Glucose 112 mg/dL (65-115) 08/02/24 22:10 Calculated Osmolality 294 mOsm/kg (285-295) 08/02/24 22:10 Calcium 9.7 mg/dL (8.5-10.5) 08/02/24 22:10 Total Bilirubin 0.3 mg/dL (0.15-1.2) 08/02/24 22:10 AST 22 U/L (0-40) 08/02/24 22:10 ALT 16 U/L (0-41) 08/02/24 22:10 Alkaline Phosphatase 96 U/L (40-130) 08/02/24 22:10 Total Protein 7.6 g/dL (6.6-8.7) 08/02/24 22:10 Albumin 4.6 g/dL (3.5-5.2) 08/02/24 22:10 Globulin 3.0 g/dL (1.3-4.6) 08/02/24 22:10 Lipase 98 U/L (13-60) H 08/02/24 22:10 No radiology studies performed this visit Discharge Plan Discharge Patient Disposition: Home Clinical Impression: Headache, migraine Qualifiers: Migraine type: unspecified Status migrainosus presence: without status migrainosus Intractability: not intractable Qualified Code(s): G43.909 - Migraine, unspecified, not intractable, without status migrainosus Condition: Stable Prescriptions: No Action gabapentin 300 mg capsule 300 mg PO TID cyclobenzaprine 10 mg tablet 10 mg PO TID lamotrigine 100 mg tablet 100 mg PO DAILY olanzapine 2.5 mg tablet 2.5 mg PO DAILY duloxetine 60 mg capsule,delayed release(DR/EC) 60 mg PO DAILY hydroxyzine HCl 10 mg tablet 10 mg PO BID (DME) Cam boot to right See Rx Instructions .Route .MEDSUPPLY Qty: 1 0RF Rx Instructions: As directed diclofenac sodium 75 mg tablet,delayed release (DR/EC) 75 mg PO BID 14 Days Qty: 28 0RF (DME) ASO See Rx Instructions .Route .MEDSUPPLY Qty: 1 0RF Rx Instructions: As directed Discharge Orders: Discharge ED (Routine); Ordered 08/03/24 Ordered By: Lennox Reagan Referrals: Shyanne Taylor MD [Primary Care Provider] - 1 week Patient Instructions: Headache - Migraine (Adult) Activity Restrictions/Additional Instructions: Thank you for choosing [facility] for your healthcare needs today. Please realize that you were seen in the emergency department and that we are providing you with an emergency medical screening exam and this may not be a complete and all exclusive of all testing and/or medical workup we may need to determine your element or severity of your illness. It is very important that you follow-up as instructed with your primary care provider or specialist for the additional evaluation and to discuss your medical treatment plan. You may return to the emergency department should you have concerns or if your condition changes or worsens in any way. Coding Level of Care Code ED [employer] [employer] for [facility]
[2024-08-02] MEDS: diphenhydrAMINE 50 mg/mL SDV 1mL IVP (22:46)
[2024-08-02] MEDS: SUMAtriptan 25 mg Tablet 100 MG PO (23:11)
[2024-08-02] MEDS: promethazine 25 mg Tablet PO (23:11)
[2024-08-02 23:16] VITALS: BP 135/75; PULSE 57; O2SAT 95
[2024-08-03 00:38] VITALS: BP 152/79; PULSE 58; RESP 18; O2SAT 94
[2024-08-03] MEDS: ondansetron 4 MG Tablet 8 MG PO (00:38)
[2024-08-03 00:42] VITALS: BP 152/79; PULSE 47; O2SAT 95
== END 2024-08-03 00:33 | disposition home or self-care (01) ==
PROVIDERS: Emergency Medicine; Emergency Provider Emergency Medicine; PCP Family Medicine
DX: G43.909 Migraine, unspecified, not intractable, without status migrainosus (principal); F17.210 Nicotine dependence, cigarettes, uncomplicated
CPT/HCPCS: 36415; 80053; 83690; 85025; 96374; 99284; J1200; Q0162; Q0169

== ENCOUNTER 2024-08-10 15:47 | Outpatient (CLI) | payer MEDICARE, MEDICAID, SELFPAY ==
--- NOTE | 2024-08-10 15:53 | XR_ITS ---
WS: [id number] Cervical spine, AP view, lateral view in flexion, extension and neutral position, both obliques, 08/10 Clinical Data: CHRONIC NECK PAIN Comparison: Cervical spine, 11/11/2021 Findings: No compression fractures are seen. The disc heights are normal. There is calcification of t he anterior longitudinal ligament at C5-C6. There is no prevertebral soft tissue swelling. The odonto id is unremarkable. The oblique films show minimal foraminal encroachment on the right at C5-C6 and C 6-C7. No instability is seen on flexion or extension. The soft tissues of the neck and the lung apices are normal. XR/XR cervical spine min 6V [id number] Impression: 1. Minimal calcification of the anterior longitudinal ligament at C5-C6. 2. Minimal foraminal encroachment on the right at C5-C6 and C6-C7. 3. No instability on flexion or extension.
== END 2024-08-10 15:48 | disposition home or self-care (01) ==
LOC: RAD 15:49
PROVIDERS: PCP Family Medicine; Visit Provider Nurse Practitioner Family
DX: M54.2 Cervicalgia (principal)
CPT/HCPCS: 72052

== ENCOUNTER → 2024-08-31 13:57 | Outpatient (BNVA) | payer MEDICARE, MEDICAID, SELFPAY | PROVIDERS: PCP Family Medicine; Visit Provider Orthopaedic Surgery | DX: M47.22 Other spondylosis with radiculopathy, cervical region (principal); M47.12 Other spondylosis with myelopathy, cervical region; M54.2 Cervicalgia | CPT/HCPCS: 72050; 99214 ==

== ENCOUNTER → 2025-03-12 13:02 | Outpatient (BNVA) | payer OTHER, MEDICAID, SELFPAY | PROVIDERS: PCP Family Medicine; Visit Provider Podiatrist Foot & Ankle Surgery | DX: M79.671 Pain in right foot (principal); M72.2 Plantar fascial fibromatosis | CPT/HCPCS: 73630; 99213 ==